=== PATIENT | male | born 1955 | race Caucasian/White ===

== ENCOUNTER 2016-05-21 11:01 | Emergency (ER) | payer MEDICAID ==
[~2016-05-21] VITALS: Ht 180.3 cm; Wt 100.0 kg
[2016-05-21] MEDS ORDERED: LURA60TA PO (11:08)
[2016-05-21] MEDS ORDERED: TRAZ300T2 PO (11:08)
[2016-05-21 11:40] LABS: BASOPHILS % (AUTO) 0.6 % (0.0-2.0); EOSINOPHILS % (AUTO) 1.4 % (1.0-6.0); HEMATOCRIT 41.7 % (41-53); HEMOGLOBIN 14.3 g/dL (13.5-17.5); LYMPHOCYTES # (AUTO) 1.8 K/uL (1.0-4.8); MEAN CORPUSCULAR HEMOGLOBIN 32.1 pg (26.0-34.0); MEAN CORPUSCULAR HGB CONC 34.2 G/dL (31.0-37.0); MEAN CORPUSCULAR VOLUME 94 fL (80-100); MONOCYTES # (AUTO) 0.4 K/uL (0.1-1.0); MONOCYTES % (AUTO) 7.4 % (2.0-9.0); NEUTROPHILS # (AUTO) 3.6 K/uL (1.8-7.7); NEUTROPHILS % (AUTO) 60.6 % (40.0-70.0); PLATELET COUNT (AUTO) 270 K/uL (150-450); RED BLOOD CELL COUNT(AUTO) 4.44 MIL/uL (4.50-5.90); RED CELL DISTRIBUTION WIDTH 12.4 % (11.5-14.5)
[2016-05-21 11:48] LABS: ANION GAP 10 mmol/L (8-16); CALCIUM, TOTAL 8.3 mg/dL (8.8-10.5); CARBON DIOXIDE 25 mmol/L (22-29); CHLORIDE 105 mmol/L (98-107); CREATININE 0.67 mg/dL (0.60-1.30); GLOMERULAR FILTR. RATE CALC > 60 mL/min (>60); POTASSIUM 4.2 mmol/L (3.5-5.1); SODIUM SERUM 140 mmol/L (136-145); UREA NITROGEN, BLOOD 8 mg/dL (7-18)
[2016-05-21 11:56] LABS: ALANINE AMINOTRANSFERASE 84 U/L (12-78); ALBUMIN 3.3 g/dL (3.4-5.0); ASPARTATE AMINOTRANSFERASE 29 U/L (15-37); BILIRUBIN,TOTAL 0.1 mg/dL (0.1-1.0); TOTAL PROTEIN, SERUM 6.8 g/dL (6.4-8.2)
[2016-05-21 14:26] VITALS: BP 120/81
== END 2016-05-21 14:43 | disposition home or self-care (01) ==
LOC: EMS 11:03
DX: F20.9 Schizophrenia, unspecified (principal); F12.10 Cannabis abuse, uncomplicated; F17.210 Nicotine dependence, cigarettes, uncomplicated; F14.90 Cocaine use, unspecified, uncomplicated; F11.90 Opioid use, unspecified, uncomplicated; F19.90 Other psychoactive substance use, unspecified, uncomplicated; Z88.0 Allergy status to penicillin
CPT/HCPCS: 36415; 80053; 80307; 85025; 99284; G0480

== ENCOUNTER 2016-07-18 03:25 | Emergency (ER) | payer MEDICAID, OTHER ==
[~2016-07-18] VITALS: Ht 177.8 cm; Wt 100.0 kg
[~2016-07-18 03:25] MED LIST: LURA60TA PO; TRAZ300T2 PO
[2016-07-18 04:03] LABS: ANION GAP 13 mmol/L (8-16); CALCIUM, TOTAL 8.9 mg/dL (8.8-10.5); CARBON DIOXIDE 25 mmol/L (22-29); CHLORIDE 105 mmol/L (98-107); CREATININE 0.85 mg/dL (0.60-1.30); GLOMERULAR FILTR. RATE CALC > 60 mL/min (>60); POTASSIUM 3.6 mmol/L (3.5-5.1); SODIUM SERUM 143 mmol/L (136-145); UREA NITROGEN, BLOOD 12 mg/dL (7-18)
[2016-07-18 04:04] LABS: BASOPHILS % (AUTO) 1.2 % (0.0-2.0); EOSINOPHILS % (AUTO) 0.9 % (1.0-6.0); HEMATOCRIT 47.7 % (41-53); HEMOGLOBIN 15.8 g/dL (13.5-17.5); LYMPHOCYTES # (AUTO) 1.8 K/uL (1.0-4.8); LYMPHOCYTES % (AUTO) 19.6 % (22.0-44.0); MEAN CORPUSCULAR HEMOGLOBIN 31.4 pg (26.0-34.0); MEAN CORPUSCULAR HGB CONC 33.2 G/dL (31.0-37.0); MEAN CORPUSCULAR VOLUME 95 fL (80-100); MONOCYTES # (AUTO) 0.7 K/uL (0.1-1.0); MONOCYTES % (AUTO) 7.4 % (2.0-9.0); NEUTROPHILS # (AUTO) 6.6 K/uL (1.8-7.7); NEUTROPHILS % (AUTO) 70.9 % (40.0-70.0); PLATELET COUNT (AUTO) 296 K/uL (150-450); RED BLOOD CELL COUNT(AUTO) 5.03 MIL/uL (4.50-5.90); RED CELL DISTRIBUTION WIDTH 12.3 % (11.5-14.5); WHITE BLOOD COUNT (AUTO) 9.2 K/uL (4.5-11.0)
[2016-07-18 04:08] LABS: ALANINE AMINOTRANSFERASE 45 U/L (12-78); ASPARTATE AMINOTRANSFERASE 20 U/L (15-37); BILIRUBIN,TOTAL 0.9 mg/dL (0.1-1.0)
[2016-07-18 04:16] VITALS: BP 135/74
[2016-07-18] MEDS ORDERED: LORazepam 2 MG TABLET PO ONE (05:15)
== END 2016-07-18 05:40 | disposition home or self-care (01) ==
LOC: EMS 03:26
DX: F29 Unspecified psychosis not due to a substance or known physiological condition (principal); F15.10 Other stimulant abuse, uncomplicated; M25.539 Pain in unspecified wrist; F20.9 Schizophrenia, unspecified; F17.210 Nicotine dependence, cigarettes, uncomplicated; F14.90 Cocaine use, unspecified, uncomplicated; F11.90 Opioid use, unspecified, uncomplicated; F12.90 Cannabis use, unspecified, uncomplicated; Z88.0 Allergy status to penicillin
CPT/HCPCS: 36415; 80053; 85025; 99284; G0480

== ENCOUNTER 2016-07-18 08:51 | Emergency (ER) | payer OTHER ==
[~2016-07-18] VITALS: Ht 177.8 cm; Wt 100.0 kg
[2016-07-18 11:05] VITALS: BP 127/99
== END 2016-07-18 11:54 | disposition home or self-care (01) ==
LOC: EMS 08:52
DX: F20.9 Schizophrenia, unspecified (principal); F15.10 Other stimulant abuse, uncomplicated; F11.90 Opioid use, unspecified, uncomplicated; F14.90 Cocaine use, unspecified, uncomplicated; F12.90 Cannabis use, unspecified, uncomplicated; F17.210 Nicotine dependence, cigarettes, uncomplicated; Z88.0 Allergy status to penicillin
CPT/HCPCS: 99284; 99406

== ENCOUNTER 2017-02-14 02:05 | Inpatient (IN) | payer MEDICAID, OTHER ==
[~2017-02-14] VITALS: Ht 177.8 cm; Wt 89.8 kg
[2017-02-14 02:44] LABS: BASOPHILS % (AUTO) 0.2 % (0.0-2.0); EOSINOPHILS % (AUTO) 0.9 % (1.0-6.0); HEMATOCRIT 45.2 % (41-53); HEMOGLOBIN 15.8 g/dL (13.5-17.5); LYMPHOCYTES # (AUTO) 1.3 K/uL (1.0-4.8); LYMPHOCYTES % (AUTO) 13.5 % (22.0-44.0); MEAN CORPUSCULAR HEMOGLOBIN 32.7 pg (26.0-34.0); MEAN CORPUSCULAR HGB CONC 34.9 G/dL (31.0-37.0); MEAN CORPUSCULAR VOLUME 94 fL (80-100); MONOCYTES # (AUTO) 0.8 K/uL (0.1-1.0); MONOCYTES % (AUTO) 8.2 % (2.0-9.0); NEUTROPHILS # (AUTO) 7.3 K/uL (1.8-7.7); NEUTROPHILS % (AUTO) 77.2 % (40.0-70.0); PLATELET COUNT (AUTO) 253 K/uL (150-450); RED BLOOD CELL COUNT(AUTO) 4.82 MIL/uL (4.50-5.90); RED CELL DISTRIBUTION WIDTH 12.7 % (11.5-14.5); WHITE BLOOD COUNT (AUTO) 9.5 K/uL (4.5-11.0)
[2017-02-14] MEDS ORDERED: DiphenhydrAMINE HCL 50 MG/ML VIAL IM ONE (02:45)
[2017-02-14] MEDS ORDERED: LORazepam 2 MG/ML VIAL IM ONE (02:45)
[2017-02-14] MEDS ORDERED: HALOPERIDOL LACTATE 5 MG/ML VIAL IM ONE (02:45)
[2017-02-14 02:49] LABS: ANION GAP 11 mmol/L (8-16); CARBON DIOXIDE 27 mmol/L (22-29); CHLORIDE 101 mmol/L (98-107); CREATININE 0.97 mg/dL (0.60-1.30); GLOMERULAR FILTR. RATE CALC > 60 mL/min (>60); POTASSIUM 3.8 mmol/L (3.5-5.1); SODIUM SERUM 139 mmol/L (136-145); UREA NITROGEN, BLOOD 11 mg/dL (7-18)
[2017-02-14 02:54] LABS: ALANINE AMINOTRANSFERASE 40 U/L (12-78); ALBUMIN 3.9 g/dL (3.4-5.0); ASPARTATE AMINOTRANSFERASE 21 U/L (15-37); TOTAL PROTEIN, SERUM 7.5 g/dL (6.4-8.2)
[2017-02-14 05:24] VITALS: BP 107/73
[2017-02-14] MEDS ORDERED: ZOLPIDEM TARTRATE 10 MG TABLET PO PRN (06:00)
[2017-02-14] MEDS ORDERED: LORazepam 2 MG TABLET PO PRN (06:00)
[2017-02-14] MEDS ORDERED: HALOPERIDOL 5 MG TABLET PO PRN (06:00)
[2017-02-14] MEDS ORDERED: ACETAMINOPHEN 325 MG TABLET PO PRN (07:00)
[2017-02-14] MEDS ORDERED: IBUPROFEN 400 MG TABLET PO PRN (07:00)
[2017-02-14 08:46] VITALS: BP 107/68
[2017-02-14 16:53] VITALS: BP 131/66
[2017-02-14] MEDS: OLANZapine 5 MG TABLET PO SCH (20:11)
[2017-02-15 06:30] LABS: HEMOGLOBIN A1C 5.8 % (4.5-6.2)
[2017-02-15 06:49] LABS: CHOL/HDL RATIO 3.8 (4.2-7.3); THYROID STIMULATING HORMONE 1.34 uIU/mL (0.36-3.74)
[2017-02-15 08:53] VITALS: BP 107/68
[2017-02-15] MEDS: FLUoxetine HCL 20 MG CAPSULE PO SCH (09:22)
[2017-02-15 16:25] VITALS: BP 106/60
[2017-02-15] MEDS: OLANZapine 5 MG TABLET PO SCH (20:27)
[2017-02-16 05:30] VITALS: BP 125/72
[2017-02-16] MEDS: FLUoxetine HCL 20 MG CAPSULE PO SCH (09:49)
[2017-02-16 10:25] VITALS: BP 126/56
[2017-02-16 18:19] VITALS: BP 110/60
[2017-02-16] MEDS: OLANZapine 5 MG TABLET PO SCH (21:02)
[2017-02-17 06:47] VITALS: BP 129/65
[2017-02-17 08:05] VITALS: BP 107/78
[2017-02-17] MEDS: FLUoxetine HCL 20 MG CAPSULE PO SCH (09:12)
[2017-02-17 18:47] VITALS: BP 112/71
[2017-02-17] MEDS: OLANZapine 5 MG TABLET PO SCH (20:28)
[2017-02-18 08:38] VITALS: BP 119/74
[2017-02-18] MEDS: FLUoxetine HCL 20 MG CAPSULE PO SCH (09:02)
[2017-02-18 17:50] VITALS: BP 112/77
[2017-02-18] MEDS: OLANZapine 5 MG TABLET PO SCH (20:41)
[2017-02-19 08:18] VITALS: BP 122/79
[2017-02-19] MEDS: FLUoxetine HCL 20 MG CAPSULE PO SCH (09:17)
[2017-02-19 17:43] VITALS: BP 113/77
[2017-02-19] MEDS: OLANZapine 5 MG TABLET PO SCH (20:58)
[2017-02-20] MEDS ORDERED: FLUO-191 PO (08:12)
[2017-02-20] MEDS ORDERED: OLAN5TAB2 PO (08:13)
[2017-02-20] MEDS: FLUoxetine HCL 20 MG CAPSULE PO SCH (10:30)
== END 2017-02-20 13:15 | disposition home or self-care (01) | DRG 750 ==
LOC: EMS 02:06 → 3EI 03:24
PROVIDERS: ADMIT Psychiatry & Neurology Psychiatry; ATTEND Psychiatry & Neurology Psychiatry
DX: F25.0 Schizoaffective disorder, bipolar type (principal); R45.851 Suicidal ideations; Z59.0 Homelessness; R00.0 Tachycardia, unspecified; F10.10 Alcohol abuse, uncomplicated; Z88.0 Allergy status to penicillin; F17.200 Nicotine dependence, unspecified, uncomplicated; F14.90 Cocaine use, unspecified, uncomplicated; F19.10 Other psychoactive substance abuse, uncomplicated; Z79.899 Other long term (current) drug therapy; Z71.51 Drug abuse counseling and surveillance of drug abuser; Z71.41 Alcohol abuse counseling and surveillance of alcoholic
CPT/HCPCS: 83036; 84443; 96372; 99291; G0480; J1200; J1630; J2060

== ENCOUNTER 2017-03-27 14:07 | Inpatient (IN) | payer MEDICAID ==
[~2017-03-27] VITALS: Ht 180.3 cm; Wt 91.2 kg
[~2017-03-27 14:07] MED LIST changes: +FLUO-191 PO; -LURA60TA PO; +OLAN5TAB2 PO; -TRAZ300T2 PO
[2017-03-27 20:25] VITALS: BP 123/74
[2017-03-27] MEDS ORDERED: HALOPERIDOL 5 MG TABLET PO PRN (20:30)
[2017-03-27 21:00] VITALS: BP 123/87
[2017-03-27] MEDS ORDERED: INFLUENZA VIRUS VACCINE QVS 2017-18 (3YR+)/PF 60 MCG/0.5 ML SYRINGE IM ONE (21:15)
[2017-03-28 05:36] VITALS: BP 110/72
[2017-03-28 07:40] LABS: BASOPHILS # (AUTO) 0.03 K/uL (0.00-0.20); BASOPHILS % (AUTO) 0.7 % (0.0-2.0); EOSINOPHILS % (AUTO) 3.96 % (1.0-6.0); HEMOGLOBIN 13.7 g/dL (13.5-17.5); LYMPHOCYTES % (AUTO) 38.1 % (22.0-44.0); MEAN CORPUSCULAR HEMOGLOBIN 32.2 pg (26.0-34.0); MEAN CORPUSCULAR HGB CONC 34.3 G/dL (31.0-37.0); MEAN CORPUSCULAR VOLUME 94 fL (80-100); MONOCYTES # (AUTO) 0.6 K/uL (0.1-1.0); MONOCYTES % (AUTO) 11.6 % (2.0-9.0); NEUTROPHILS # (AUTO) 2.3 K/uL (1.8-7.7); NEUTROPHILS % (AUTO) 45.7 % (40.0-70.0); PLATELET COUNT (AUTO) 231 K/uL (150-450); RED BLOOD CELL COUNT(AUTO) 4.26 MIL/uL (4.50-5.90); RED CELL DISTRIBUTION WIDTH 12.6 % (11.5-14.5); WHITE BLOOD COUNT (AUTO) 5.1 K/uL (4.5-11.0)
[2017-03-28 08:14] VITALS: BP 107/70
[2017-03-28 08:47] LABS: ALANINE AMINOTRANSFERASE 33 U/L (12-78); ALBUMIN 3.1 g/dL (3.4-5.0); ANION GAP 8 mmol/L (8-16); ASPARTATE AMINOTRANSFERASE 24 U/L (15-37); BILIRUBIN,TOTAL 0.7 mg/dL (0.1-1.0); CALCIUM, TOTAL 8.5 mg/dL (8.8-10.5); CARBON DIOXIDE 28 mmol/L (22-29); CHLORIDE 103 mmol/L (98-107); CREATININE 0.82 mg/dL (0.60-1.30); GLOMERULAR FILTR. RATE CALC > 60 mL/min (>60); POTASSIUM 4.1 mmol/L (3.5-5.1); SODIUM SERUM 139 mmol/L (136-145); TOTAL PROTEIN, SERUM 6.4 g/dL (6.4-8.2); UREA NITROGEN, BLOOD 12 mg/dL (7-18)
[2017-03-28] MEDS: NICOTINE 14 MG/24 HOUR PATCH TD SCH (09:06)
[2017-03-28] MEDS: BACITRACIN 28.4 GM OINTMENT TP SCH ×2 (09:10→16:53)
[2017-03-28] MEDS ORDERED: ACETAMINOPHEN 325 MG TABLET PO PRN (12:00)
[2017-03-28] MEDS ORDERED: IBUPROFEN 400 MG TABLET PO PRN (12:00)
[2017-03-28 16:00] VITALS: BP 132/72
[2017-03-28] MEDS: FLUoxetine HCL 20 MG CAPSULE PO SCH (16:53)
[2017-03-28] MEDS: OLANZapine 5 MG TABLET PO SCH (20:46)
[2017-03-29 06:42] VITALS: BP 139/90
[2017-03-29 08:45] VITALS: BP 124/67
[2017-03-29] MEDS: BACITRACIN 28.4 GM OINTMENT TP SCH ×2 (09:14→17:01)
[2017-03-29] MEDS: NICOTINE 14 MG/24 HOUR PATCH TD SCH (09:14)
[2017-03-29] MEDS: FLUoxetine HCL 20 MG CAPSULE PO SCH (09:14)
[2017-03-29 16:00] VITALS: BP 122/78
[2017-03-29] MEDS: LORazepam 2 MG TABLET PO PRN ×2 (17:01→21:02)
[2017-03-29] MEDS ORDERED: LORATADINE 10 MG TABLET PO PRN (18:30)
[2017-03-29] MEDS: ZOLPIDEM TARTRATE 10 MG TABLET PO PRN (21:02)
[2017-03-29] MEDS: OLANZapine 5 MG TABLET PO SCH (21:02)
[2017-03-30 06:10] VITALS: BP 127/77
[2017-03-30 08:18] VITALS: BP 134/77
[2017-03-30 09:01] LABS: APPEARANCE,URINE CLEAR (CLEAR); GLUCOSE, URINE (UA) NEGATIVE (NEGATIVE); KETONES,URINE NEGATIVE (NEGATIVE); LEUKOCYTE ESTERASE ,URINE NEGATIVE (NEGATIVE); OCCULT BLOOD,URINE NEGATIVE (NEGATIVE); PH,URINE 7.5 (5.0-8.0); PROTEIN,URINE NEGATIVE (NEGATIVE)
[2017-03-30 09:12] LABS: ADD UA MICROSCOPIC NO
[2017-03-30] MEDS: BACITRACIN 28.4 GM OINTMENT TP SCH ×2 (09:30→16:58)
[2017-03-30] MEDS: NICOTINE 14 MG/24 HOUR PATCH TD SCH (09:31)
[2017-03-30] MEDS: FLUoxetine HCL 20 MG CAPSULE PO SCH (09:31)
[2017-03-30 16:00] VITALS: BP 128/79
[2017-03-30] MEDS: OLANZapine 5 MG TABLET PO SCH (20:43)
[2017-03-31 06:07] VITALS: BP 122/81
[2017-03-31 08:36] VITALS: BP 138/82
[2017-03-31] MEDS: FLUoxetine HCL 20 MG CAPSULE PO SCH (10:01)
[2017-03-31] MEDS: NICOTINE 14 MG/24 HOUR PATCH TD SCH (10:01)
[2017-03-31] MEDS: BACITRACIN 28.4 GM OINTMENT TP SCH ×2 (10:02→17:04)
[2017-03-31 12:48] VITALS: BP 121/78
[2017-03-31 13:51] VITALS: BP 136/72
[2017-03-31 16:10] VITALS: BP 135/71
[2017-03-31] MEDS: LORazepam 2 MG TABLET PO PRN (17:04)
[2017-03-31] MEDS: OLANZapine 5 MG TABLET PO SCH (20:51)
[2017-03-31] MEDS: ZOLPIDEM TARTRATE 10 MG TABLET PO PRN (20:51)
[2017-04-01 06:42] VITALS: BP 129/70
[2017-04-01 08:13] VITALS: BP 137/75
[2017-04-01] MEDS: FLUoxetine HCL 20 MG CAPSULE PO SCH (09:40)
[2017-04-01] MEDS: NICOTINE 14 MG/24 HOUR PATCH TD SCH (09:40)
[2017-04-01] MEDS: BACITRACIN 28.4 GM OINTMENT TP SCH ×2 (09:41→16:48)
[2017-04-01 12:28] VITALS: BP 135/79
[2017-04-01 14:55] VITALS: BP 133/79
[2017-04-01 16:00] VITALS: BP 112/74
[2017-04-01] MEDS: OLANZapine 5 MG TABLET PO SCH (20:34)
[2017-04-01] MEDS: ZOLPIDEM TARTRATE 10 MG TABLET PO PRN (20:34)
[2017-04-02 06:57] VITALS: BP 137/85
[2017-04-02] MEDS: FLUoxetine HCL 20 MG CAPSULE PO SCH (08:13)
[2017-04-02] MEDS: LORazepam 2 MG TABLET PO PRN (08:13)
[2017-04-02] MEDS: BACITRACIN 28.4 GM OINTMENT TP SCH (08:13)
[2017-04-02] MEDS: NICOTINE 14 MG/24 HOUR PATCH TD SCH (08:14)
[2017-04-02 08:19] VITALS: BP 128/70
== END 2017-04-02 12:15 | disposition home or self-care (01) | DRG 750 ==
LOC: B3A 20:23 → UNDOADMIN 20:23 → B3A 20:24
PROVIDERS: ADMIT Psychiatry & Neurology Psychiatry; ATTEND Psychiatry & Neurology Psychiatry
DX: F25.0 Schizoaffective disorder, bipolar type (principal); R45.851 Suicidal ideations; Z59.0 Homelessness; F41.9 Anxiety disorder, unspecified; F10.10 Alcohol abuse, uncomplicated; F15.90 Other stimulant use, unspecified, uncomplicated; F17.200 Nicotine dependence, unspecified, uncomplicated; R73.9 Hyperglycemia, unspecified; Z71.6 Tobacco abuse counseling; Z88.0 Allergy status to penicillin; Z71.41 Alcohol abuse counseling and surveillance of alcoholic
CPT/HCPCS: 80307; 83036; 87081; 90471

== ENCOUNTER 2017-06-29 02:55 | Inpatient (IN) | payer MEDICAID, OTHER ==
[~2017-06-29] VITALS: Ht 180.3 cm; Wt 87.3 kg
[2017-06-29] MEDS ORDERED: DiphenhydrAMINE HCL 50 MG/ML VIAL IM ONE (04:00)
[2017-06-29] MEDS ORDERED: HALOPERIDOL LACTATE 5 MG/ML VIAL IM ONE (04:00)
[2017-06-29] MEDS ORDERED: LORazepam 2 MG/ML VIAL IM ONE (04:00)
[2017-06-29] MEDS ORDERED: IBUPROFEN 400 MG TABLET PO PRN (06:45)
[2017-06-29] MEDS ORDERED: ACETAMINOPHEN 325 MG TABLET PO PRN (06:45)
[2017-06-29 19:11] VITALS: BP 126/78
[2017-06-29] MEDS ORDERED: INFLUENZA VIRUS VACCINE QVS 2017-18 (3YR+)/PF 60 MCG/0.5 ML SYRINGE IM ONE (19:30)
[2017-06-30 06:24] VITALS: BP 130/72
[2017-06-30 08:01] VITALS: BP 112/66
[2017-06-30 08:46] LABS: BASOPHILS % (AUTO) 0.5 % (0.0-2.0); EOSINOPHILS % (AUTO) 2.5 % (1.0-6.0); HEMOGLOBIN 15.4 g/dL (13.5-17.5); LYMPHOCYTES # (AUTO) 1.9 K/uL (1.0-4.8); LYMPHOCYTES % (AUTO) 26.2 % (22.0-44.0); MEAN CORPUSCULAR HEMOGLOBIN 31.5 pg (26.0-34.0); MEAN CORPUSCULAR HGB CONC 34.2 G/dL (31.0-37.0); MEAN CORPUSCULAR VOLUME 92 fL (80-100); MONOCYTES # (AUTO) 0.6 K/uL (0.1-1.0); MONOCYTES % (AUTO) 8.4 % (2.0-9.0); NEUTROPHILS # (AUTO) 4.5 K/uL (1.8-7.7); NEUTROPHILS % (AUTO) 62.4 % (40.0-70.0); PLATELET COUNT (AUTO) 233 K/uL (150-450); RED BLOOD CELL COUNT(AUTO) 4.89 MIL/uL (4.50-5.90); RED CELL DISTRIBUTION WIDTH 13.3 % (11.5-14.5)
[2017-06-30 09:07] LABS: HEMOGLOBIN A1C 5.4 % (4.5-6.2)
[2017-06-30] MEDS: NICOTINE 21 MG/24 HOUR PATCH TD SCH (09:21)
[2017-06-30] MEDS: LORazepam 2 MG TABLET PO PRN ×2 (09:22→16:12)
[2017-06-30 10:31] LABS: ALANINE AMINOTRANSFERASE 32 U/L (12-78); ALBUMIN 3.2 g/dL (3.4-5.0); ALKALINE PHOSPHATASE 108 U/L (46-116); ANION GAP 8 mmol/L (8-16); ASPARTATE AMINOTRANSFERASE 25 U/L (15-37); BILIRUBIN,TOTAL 0.9 mg/dL (0.1-1.0); CALCIUM, TOTAL 8.7 mg/dL (8.8-10.5); CARBON DIOXIDE 28 mmol/L (22-29); CHLORIDE 101 mmol/L (98-107); CHOL/HDL RATIO 3.6 (4.2-7.3); CHOLESTEROL 213 mg/dL (131-200); CREATININE 0.92 mg/dL (0.60-1.30); GLOMERULAR FILTR. RATE CALC > 60 mL/min (>60); GLUCOSE,RANDOM 114 mg/dL (70-110); HDL CHOLESTEROL 59 mg/dL (40-60); LDL CHOL (CALC.) 132 mg/dL (0-130); POTASSIUM 3.5 mmol/L (3.5-5.1); SODIUM SERUM 137 mmol/L (136-145); THYROID STIMULATING HORMONE 1.14 uIU/mL (0.36-3.74); TOTAL PROTEIN, SERUM 6.7 g/dL (6.4-8.2); TRIGLYCERIDES 111 mg/dL (15-150); UREA NITROGEN, BLOOD 11 mg/dL (7-18)
[2017-06-30 16:00] VITALS: BP 120/65
[2017-06-30] MEDS: HALOPERIDOL 5 MG TABLET PO PRN (16:12)
[2017-07-01 07:10] VITALS: BP 128/77
[2017-07-01 08:01] VITALS: BP 107/62
[2017-07-01] MEDS: NICOTINE 21 MG/24 HOUR PATCH TD SCH (08:26)
[2017-07-01] MEDS ORDERED: ARIPiprazole 10 MG TABLET PO SCH (09:00)
[2017-07-01] MEDS ORDERED: FLUoxetine HCL 20 MG CAPSULE PO SCH (09:00)
[2017-07-01 16:00] VITALS: BP 114/79
[2017-07-02 06:31] VITALS: BP 125/75
[2017-07-02 08:06] VITALS: BP 129/79
[2017-07-02] MEDS: NICOTINE 21 MG/24 HOUR PATCH TD SCH (08:30)
[2017-07-02] MEDS: ARIPiprazole 10 MG TABLET PO SCH (08:31)
[2017-07-02] MEDS: FLUoxetine HCL 20 MG CAPSULE PO SCH (08:31)
[2017-07-02 16:10] VITALS: BP 113/76
[2017-07-02] MEDS: LORazepam 2 MG TABLET PO PRN ×2 (16:41→16:45)
[2017-07-02] MEDS: HALOPERIDOL 5 MG TABLET PO PRN ×2 (16:41→16:45)
[2017-07-03 06:46] VITALS: BP 120/68
[2017-07-03] MEDS: NICOTINE 21 MG/24 HOUR PATCH TD SCH (08:18)
[2017-07-03] MEDS: ARIPiprazole 10 MG TABLET PO SCH (08:18)
[2017-07-03] MEDS: FLUoxetine HCL 20 MG CAPSULE PO SCH (08:18)
[2017-07-03 08:20] VITALS: BP 118/65
[2017-07-03 16:00] VITALS: BP 125/74
[2017-07-03] MEDS: BACITRACIN 28.4 GM OINTMENT TP SCH (17:10)
[2017-07-03] MEDS: ZOLPIDEM TARTRATE 10 MG TABLET PO PRN (21:37)
[2017-07-04 06:37] VITALS: BP 133/77
[2017-07-04 08:01] VITALS: BP 126/72
[2017-07-04] MEDS: ARIPiprazole 10 MG TABLET PO SCH (08:18)
[2017-07-04] MEDS: BACITRACIN 28.4 GM OINTMENT TP SCH ×2 (08:18→16:57)
[2017-07-04] MEDS: NICOTINE 21 MG/24 HOUR PATCH TD SCH (08:18)
[2017-07-04] MEDS: FLUoxetine HCL 20 MG CAPSULE PO SCH (08:18)
[2017-07-04 16:00] VITALS: BP 116/71
[2017-07-04] MEDS: LORazepam 2 MG TABLET PO PRN (20:14)
[2017-07-04] MEDS: HALOPERIDOL 5 MG TABLET PO PRN (20:14)
[2017-07-05 00:54] VITALS: BP 124/69
[2017-07-05 08:03] VITALS: BP 117/64
[2017-07-05] MEDS: ARIPiprazole 10 MG TABLET PO SCH (08:26)
[2017-07-05] MEDS: NICOTINE 21 MG/24 HOUR PATCH TD SCH (08:26)
[2017-07-05] MEDS: FLUoxetine HCL 20 MG CAPSULE PO SCH (08:26)
[2017-07-05] MEDS: BACITRACIN 28.4 GM OINTMENT TP SCH ×2 (09:00→16:53)
[2017-07-05 16:00] VITALS: BP 118/67
[2017-07-05] MEDS: ZOLPIDEM TARTRATE 10 MG TABLET PO PRN (23:47)
[2017-07-05] MEDS: LORazepam 2 MG TABLET PO PRN (23:47)
[2017-07-05] MEDS: HALOPERIDOL 5 MG TABLET PO PRN (23:48)
[2017-07-06 03:52] VITALS: BP 119/65
[2017-07-06 08:01] VITALS: BP 120/68
[2017-07-06] MEDS: FLUoxetine HCL 20 MG CAPSULE PO SCH (08:22)
[2017-07-06] MEDS: ARIPiprazole 10 MG TABLET PO SCH (08:22)
[2017-07-06] MEDS: NICOTINE 21 MG/24 HOUR PATCH TD SCH (08:23)
[2017-07-06] MEDS: BACITRACIN 28.4 GM OINTMENT TP SCH ×2 (11:46→16:30)
[2017-07-06 16:00] VITALS: BP 114/66
[2017-07-06] MEDS: HALOPERIDOL 5 MG TABLET PO PRN (16:31)
[2017-07-06] MEDS: LORazepam 2 MG TABLET PO PRN (16:31)
[2017-07-07 06:23] VITALS: BP 137/64
[2017-07-07 08:12] VITALS: BP 126/64
[2017-07-07] MEDS: NICOTINE 21 MG/24 HOUR PATCH TD SCH (08:30)
[2017-07-07] MEDS: ARIPiprazole 10 MG TABLET PO SCH (08:30)
[2017-07-07] MEDS: FLUoxetine HCL 20 MG CAPSULE PO SCH (08:30)
[2017-07-07] MEDS: BACITRACIN 28.4 GM OINTMENT TP SCH ×2 (08:36→17:08)
[2017-07-07 16:01] VITALS: BP 111/64
[2017-07-07] MEDS: HALOPERIDOL 5 MG TABLET PO PRN (17:23)
[2017-07-08 08:01] VITALS: BP 122/68
[2017-07-08] MEDS ORDERED: ARIP20TA PO (08:56)
[2017-07-08] MEDS ORDERED: FLUO40CA7 PO (08:56)
[2017-07-08] MEDS: NICOTINE 21 MG/24 HOUR PATCH TD SCH (08:59)
[2017-07-08] MEDS: BACITRACIN 28.4 GM OINTMENT TP SCH ×2 (08:59→17:02)
[2017-07-08] MEDS: FLUoxetine HCL 20 MG CAPSULE PO SCH (08:59)
[2017-07-08] MEDS: ARIPiprazole 10 MG TABLET PO SCH (08:59)
[2017-07-08 16:00] VITALS: BP 119/84
== END 2017-07-08 17:00 | disposition home or self-care (01) | DRG 750 ==
LOC: EMS 02:56 → B3A 17:48
PROVIDERS: ADMIT Psychiatry & Neurology Psychiatry; ATTEND Psychiatry & Neurology Psychiatry
DX: F25.0 Schizoaffective disorder, bipolar type (principal); R45.851 Suicidal ideations; Z59.0 Homelessness; F41.9 Anxiety disorder, unspecified; F17.200 Nicotine dependence, unspecified, uncomplicated; F15.90 Other stimulant use, unspecified, uncomplicated; F11.90 Opioid use, unspecified, uncomplicated; F14.90 Cocaine use, unspecified, uncomplicated; F12.90 Cannabis use, unspecified, uncomplicated; F10.10 Alcohol abuse, uncomplicated; E78.5 Hyperlipidemia, unspecified; Z88.0 Allergy status to penicillin; Z79.899 Other long term (current) drug therapy; Z71.6 Tobacco abuse counseling; Z71.41 Alcohol abuse counseling and surveillance of alcoholic; Z71.51 Drug abuse counseling and surveillance of drug abuser
CPT/HCPCS: 83036; 84443; 96372; 99285; J1200; J1630; J2060

== ENCOUNTER 2022-09-17 11:06 | Emergency (ER) | payer SELFPAY ==
[~2022-09-17] VITALS: Ht 177.8 cm; Wt 90.0 kg
[~2022-09-17 11:06] MED LIST changes: +ARIP20TA PO; -FLUO-191 PO; +FLUO40CA7 PO; -OLAN5TAB2 PO
[2022-09-17] MEDS ORDERED: PERMETHRIN 5% 60 GM CREAM TP ONE (12:15)
[2022-09-17 13:15] VITALS: BP 122/87
== END 2022-09-17 13:16 | disposition home or self-care (01) ==
LOC: EMS 11:06
DX: B86 Scabies (principal); F20.9 Schizophrenia, unspecified; F14.90 Cocaine use, unspecified, uncomplicated; F19.90 Other psychoactive substance use, unspecified, uncomplicated; F15.90 Other stimulant use, unspecified, uncomplicated; F12.90 Cannabis use, unspecified, uncomplicated; Z88.0 Allergy status to penicillin; Z59.00 Homelessness unspecified
CPT/HCPCS: 99282; Z7502; Z7610

== ENCOUNTER 2022-09-22 10:28 | Emergency (ER) | payer MEDICAID ==
[~2022-09-22] VITALS: Ht 182.9 cm; Wt 90.9 kg
[2022-09-22] MEDS ORDERED: PERMETHRIN 1% 60 ML LOTION TP ONE (12:15)
[2022-09-22] MEDS ORDERED: PIPERONYL BUTOXIDE/PYRETHRINS 120 ML SHAMPOO TP ONE (12:15)
[2022-09-22] MEDS ORDERED: PERMETHRIN 5% 60 GM CREAM TP ONE (12:15)
[2022-09-22 13:07] VITALS: BP 105/76
== END 2022-09-22 13:12 | disposition home or self-care (01) ==
LOC: EMS 10:32
DX: B85.0 Pediculosis due to Pediculus humanus capitis (principal); B86 Scabies; F20.9 Schizophrenia, unspecified; F14.90 Cocaine use, unspecified, uncomplicated; F19.90 Other psychoactive substance use, unspecified, uncomplicated; F15.90 Other stimulant use, unspecified, uncomplicated; F12.90 Cannabis use, unspecified, uncomplicated; Z59.00 Homelessness unspecified; Z88.0 Allergy status to penicillin
CPT/HCPCS: 99284; Z7502; Z7610